=== PATIENT | male | born 1955 | race Caucasian/White ===

== ENCOUNTER 2021-04-25 09:40 | Inpatient (IN) | payer OTHER ==
[~2021-04-25] VITALS: Ht 180.3 cm; Wt 78.1 kg
[2021-04-25 10:59] LABS: COVID AG,FIA SOURCE NASOPHARYNGEAL
[2021-04-25 11:00] LABS: BASOPHILS % (AUTO) 1.4 % (0.0-2.0); EOSINOPHILS % (AUTO) 9.5 % (1.0-6.0); HEMATOCRIT 31.6 % (41-53); HEMOGLOBIN 10.5 g/dL (13.5-17.5); LYMPHOCYTES # (AUTO) 1.1 K/uL (1.0-4.8); LYMPHOCYTES % (AUTO) 14.5 % (22.0-44.0); MEAN CORPUSCULAR HEMOGLOBIN 31.5 pg (26.0-34.0); MEAN CORPUSCULAR HGB CONC 33.1 G/dL (31.0-37.0); MEAN CORPUSCULAR VOLUME 95 fL (80-100); MONOCYTES # (AUTO) 0.8 K/uL (0.1-1.0); MONOCYTES % (AUTO) 10.4 % (2.0-9.0); NEUTROPHILS # (AUTO) 4.8 K/uL (1.8-7.7); NEUTROPHILS % (AUTO) 64.2 % (40.0-70.0); PLATELET COUNT (AUTO) 144 K/uL (150-450); RED BLOOD CELL COUNT(AUTO) 3.32 MIL/uL (4.50-5.90); RED CELL DISTRIBUTION WIDTH 14.5 % (11.5-14.5)
[2021-04-25 11:18] LABS: ALANINE AMINOTRANSFERASE 29 U/L (12-78); ALBUMIN 3.7 g/dL (3.4-5.0); ALKALINE PHOSPHATASE 110 U/L (46-116); ANION GAP 11 mmol/L (8-16); ASPARTATE AMINOTRANSFERASE 20 U/L (15-37); BILIRUBIN,TOTAL 0.4 mg/dL (0.1-1.0); CALCIUM, TOTAL 9.3 mg/dL (8.8-10.5); CARBON DIOXIDE 25 mmol/L (22-29); CHLORIDE 104 mmol/L (98-107); CREATININE 12.39 mg/dL (0.60-1.30); GLOMERULAR FILTR. RATE CALC 4 mL/min (>60); GLUCOSE,RANDOM 96 mg/dL (70-110); SODIUM SERUM 140 mmol/L (136-145); TOTAL PROTEIN, SERUM 6.9 g/dL (6.4-8.2); UREA NITROGEN, BLOOD 90 mg/dL (7-18)
[2021-04-25 11:21] LABS: POTASSIUM 6.1 mmol/L (3.5-5.1)
[2021-04-25 11:28] LABS: B-TYPE NATRIURETIC PEPTIDE > 5000 pg/mL (0-100)
[2021-04-25] MEDS ORDERED: ONDANSETRON HCL 4 MG/2 ML VIAL IVP PRN (11:45)
[2021-04-25] MEDS ORDERED: INSULIN REGULAR, HUMAN 100 UNITS/ML IVP ONE (11:45)
[2021-04-25] MEDS ORDERED: DEXTROSE 50%-WATER 25 GM/50 ML SYRINGE IVP ONE (11:45)
[2021-04-25 11:57] LABS: GLUCOSE,POINT OF CARE 73 MG/DL (70-110)
[2021-04-25] MEDS ORDERED: DEXTROSE 50%-WATER 25 GM/50 ML SYRINGE IVP PRN (12:15)
[2021-04-25 16:17] VITALS: BP 134/72
[2021-04-25 20:08] LABS: GLUCOMETER DEV NAME(LOC) 5S.2B; GLUCOSE,POINT OF CARE 112 MG/DL (70-110)
[2021-04-25] MEDS: HEPARIN SODIUM,PORCINE 5,000 UNITS/ML VIAL SQ SCH (20:39)
[2021-04-25] MEDS: DOCUSATE SODIUM 100 MG CAPSULE PO SCH (20:39)
[2021-04-25] MEDS: INSULIN LISPRO 100 UNITS/ML SQ PRN (20:40)
[2021-04-25] MEDS: ACETAMINOPHEN 325 MG TABLET PO PRN (20:47)
[2021-04-26 00:11] VITALS: BP 96/46
[2021-04-26 05:15] VITALS: BP 124/72
[2021-04-26 08:15] VITALS: BP 115/78
[2021-04-26] MEDS: HEPARIN SODIUM,PORCINE 5,000 UNITS/ML VIAL SQ SCH ×2 (08:57→21:29)
[2021-04-26] MEDS: DOCUSATE SODIUM 100 MG CAPSULE PO SCH ×2 (08:57→21:29)
[2021-04-26] MEDS: VITAMIN B COMP/VIT C/FOLIC ACID CAPSULE PO SCH (08:57)
[2021-04-26] MEDS: FAMOTIDINE 20 MG TABLET PO SCH (08:57)
[2021-04-26 09:10] LABS: CALCIUM, TOTAL 8.8 mg/dL (8.8-10.5); CREATININE 8.14 mg/dL (0.60-1.30); POTASSIUM 5.5 mmol/L (3.5-5.1)
[2021-04-26 11:13] VITALS: BP 102/64
[2021-04-26 16:09] VITALS: BP 99/60
[2021-04-26] MEDS ORDERED: SODIUM CHLORIDE 0.9% 2,000 ML ONE (16:51)
[2021-04-26 17:26] LABS: GLUCOMETER DEV NAME(LOC) 5N.3; GLUCOSE,POINT OF CARE 151 MG/DL (70-110)
[2021-04-26 17:27] LABS: GLUCOMETER DEV NAME(LOC) 5N.3; GLUCOSE,POINT OF CARE 139 MG/DL (70-110)
[2021-04-26 17:27] LABS: GLUCOMETER DEV NAME(LOC) 5N.3; GLUCOSE,POINT OF CARE 78 MG/DL (70-110)
[2021-04-26] MEDS: SEVELAMER CARBONATE 800 MG TABLET PO SCH (18:49)
[2021-04-26 20:21] VITALS: BP 125/75
[2021-04-27 00:32] VITALS: BP 119/69
[2021-04-27 04:28] VITALS: BP 119/71
[2021-04-27 05:10] LABS: GLUCOMETER DEV NAME(LOC) 5N.1C; GLUCOSE,POINT OF CARE 96 MG/DL (70-110)
[2021-04-27 07:30] VITALS: BP 131/86
[2021-04-27] MEDS: FAMOTIDINE 20 MG TABLET PO SCH (08:20)
[2021-04-27] MEDS: VITAMIN B COMP/VIT C/FOLIC ACID CAPSULE PO SCH (08:20)
[2021-04-27] MEDS: DOCUSATE SODIUM 100 MG CAPSULE PO SCH ×2 (08:20→20:17)
[2021-04-27] MEDS: SEVELAMER CARBONATE 800 MG TABLET PO SCH ×3 (08:20→18:07)
[2021-04-27] MEDS: HEPARIN SODIUM,PORCINE 5,000 UNITS/ML VIAL SQ SCH ×2 (08:20→20:19)
[2021-04-27 11:30] VITALS: BP 112/70
[2021-04-27 11:34] LABS: CALCIUM, TOTAL 8.2 mg/dL (8.8-10.5); CREATININE 6.66 mg/dL (0.60-1.30); POTASSIUM 5.2 mmol/L (3.5-5.1)
[2021-04-27 14:42] LABS: GLUCOMETER DEV NAME(LOC) 5N.1C; GLUCOSE,POINT OF CARE 70 MG/DL (70-110)
[2021-04-27 14:42] LABS: GLUCOMETER DEV NAME(LOC) 5N.1C; GLUCOSE,POINT OF CARE 84 MG/DL (70-110)
[2021-04-27 16:00] VITALS: BP 114/75
[2021-04-27 19:35] LABS: GLUCOMETER DEV NAME(LOC) 5S.1; GLUCOSE,POINT OF CARE 108 MG/DL (70-110)
[2021-04-27 20:15] VITALS: BP 121/74
[2021-04-27 22:30] LABS: GLUCOMETER DEV NAME(LOC) 6N.1; GLUCOSE,POINT OF CARE 123 MG/DL (70-110)
[2021-04-28] MEDS: ACETAMINOPHEN 325 MG TABLET PO PRN (01:55)
[2021-04-28 05:00] VITALS: BP 113/82
[2021-04-28 06:26] LABS: GLUCOMETER DEV NAME(LOC) 6N.1; GLUCOSE,POINT OF CARE 86 MG/DL (70-110)
[2021-04-28 07:38] VITALS: BP 110/65
[2021-04-28] MEDS: DOCUSATE SODIUM 100 MG CAPSULE PO SCH ×2 (08:02→20:29)
[2021-04-28] MEDS: SEVELAMER CARBONATE 800 MG TABLET PO SCH ×3 (08:02→17:22)
[2021-04-28] MEDS: FAMOTIDINE 20 MG TABLET PO SCH (08:02)
[2021-04-28] MEDS: HEPARIN SODIUM,PORCINE 5,000 UNITS/ML VIAL SQ SCH ×2 (08:02→20:32)
[2021-04-28] MEDS: VITAMIN B COMP/VIT C/FOLIC ACID CAPSULE PO SCH (08:02)
[2021-04-28 12:46] LABS: GLUCOMETER DEV NAME(LOC) 6S.1; GLUCOSE,POINT OF CARE 89 MG/DL (70-110)
[2021-04-28] MEDS ORDERED: SODIUM CHLORIDE 0.9% 1,000 ML ONE ×2 (15:23)
[2021-04-28 18:11] LABS: GLUCOMETER DEV NAME(LOC) 6S.1; GLUCOSE,POINT OF CARE 96 MG/DL (70-110)
[2021-04-28 20:47] VITALS: BP_SYST 117; BP_DIAS 117; BP_DIAS 63
[2021-04-28 23:48] LABS: GLUCOMETER DEV NAME(LOC) 6S.1; GLUCOSE,POINT OF CARE 108 MG/DL (70-110)
[2021-04-29 00:41] VITALS: BP 105/67
[2021-04-29 05:25] LABS: GLUCOMETER DEV NAME(LOC) 6N.1; GLUCOSE,POINT OF CARE 83 MG/DL (70-110)
[2021-04-29 05:33] VITALS: BP 122/71
[2021-04-29 08:02] VITALS: BP 109/58
[2021-04-29] MEDS: DOCUSATE SODIUM 100 MG CAPSULE PO SCH ×2 (08:59→20:29)
[2021-04-29] MEDS: SEVELAMER CARBONATE 800 MG TABLET PO SCH ×3 (08:59→17:53)
[2021-04-29] MEDS: VITAMIN B COMP/VIT C/FOLIC ACID CAPSULE PO SCH (08:59)
[2021-04-29] MEDS: FAMOTIDINE 20 MG TABLET PO SCH (09:00)
[2021-04-29] MEDS: HEPARIN SODIUM,PORCINE 5,000 UNITS/ML VIAL SQ SCH ×2 (09:00→20:29)
[2021-04-29] MEDS ORDERED: EPOETIN ALFA 10,000 UNITS/ML VIAL SQ SCH (09:00)
[2021-04-29] MEDS: INSULIN LISPRO 100 UNITS/ML SQ PRN ×2 (11:59→17:24)
[2021-04-29 13:09] LABS: GLUCOMETER DEV NAME(LOC) 6S.1; GLUCOSE,POINT OF CARE 85 MG/DL (70-110)
[2021-04-29 19:40] VITALS: BP 98/55
[2021-04-29 22:26] LABS: GLUCOMETER DEV NAME(LOC) 6N.1; GLUCOSE,POINT OF CARE 111 MG/DL (70-110)
[2021-04-29 22:26] LABS: GLUCOMETER DEV NAME(LOC) 6N.1; GLUCOSE,POINT OF CARE 96 MG/DL (70-110)
[2021-04-30 04:52] VITALS: BP 125/76
[2021-04-30 05:51] LABS: GLUCOMETER DEV NAME(LOC) 6S.1; GLUCOSE,POINT OF CARE 125 MG/DL (70-110)
[2021-04-30] MEDS ORDERED: SODIUM CHLORIDE 0.9% 2,000 ML ONE (07:38)
[2021-04-30] MEDS: SEVELAMER CARBONATE 800 MG TABLET PO SCH ×3 (07:56→18:55)
[2021-04-30] MEDS: HEPARIN SODIUM,PORCINE 5,000 UNITS/ML VIAL SQ SCH ×2 (07:56→20:14)
[2021-04-30 08:05] VITALS: BP 105/70
[2021-04-30] MEDS ORDERED: SEVE0.8P6 PO (10:48)
[2021-04-30] MEDS ORDERED: DOCU-275 PO (10:48)
[2021-04-30] MEDS ORDERED: FAMO20 PO (10:48)
[2021-04-30] MEDS ORDERED: ACET-2247 PO (10:49)
[2021-04-30] MEDS ORDERED: B CO1CAP6 PO (10:49)
[2021-04-30] MEDS ORDERED: INSU100V SQ (10:50)
[2021-04-30] MEDS: VITAMIN B COMP/VIT C/FOLIC ACID CAPSULE PO SCH (13:09)
[2021-04-30] MEDS: DOCUSATE SODIUM 100 MG CAPSULE PO SCH ×2 (13:09→20:13)
[2021-04-30] MEDS: FAMOTIDINE 20 MG TABLET PO SCH (13:09)
[2021-04-30 13:11] VITALS: BP 133/98
[2021-04-30 19:46] LABS: GLUCOMETER DEV NAME(LOC) 6S.1; GLUCOSE,POINT OF CARE 82 MG/DL (70-110)
[2021-04-30 19:46] LABS: GLUCOMETER DEV NAME(LOC) 6N.1; GLUCOSE,POINT OF CARE 84 MG/DL (70-110)
[2021-04-30 19:58] VITALS: BP 95/56
[2021-05-01 00:52] LABS: GLUCOMETER DEV NAME(LOC) 6S.1; GLUCOSE,POINT OF CARE 147 MG/DL (70-110)
[2021-05-01 03:54] VITALS: BP 114/68
[2021-05-01 07:37] LABS: GLUCOMETER DEV NAME(LOC) 6N.1; GLUCOSE,POINT OF CARE 93 MG/DL (70-110)
[2021-05-02] MEDS ORDERED: SEVE800T17 PO (20:21)
== END 2021-05-01 07:49 | DRG 640 ==
LOC: EMS 09:43 → 5S 11:43 → 6S 04-27 19:05
PROVIDERS: ADMIT Internal Medicine; ATTEND Internal Medicine
PROC: 5A1D70Z Performance of Urinary Filtration, Intermittent, Less than 6 Hours Per Day (ICD-10-PCS; principal; 2021-04-25)
PROC: 5A1D70Z Performance of Urinary Filtration, Intermittent, Less than 6 Hours Per Day (ICD-10-PCS; 2021-04-26)
PROC: 5A1D70Z Performance of Urinary Filtration, Intermittent, Less than 6 Hours Per Day (ICD-10-PCS; 2021-04-28)
PROC: 5A1D70Z Performance of Urinary Filtration, Intermittent, Less than 6 Hours Per Day (ICD-10-PCS; 2021-04-30)
DX: E87.5 Hyperkalemia (principal); N18.6 End stage renal disease; I12.0 Hypertensive chronic kidney disease with stage 5 chronic kidney disease or end stage renal disease; E78.00 Pure hypercholesterolemia, unspecified; E11.51 Type 2 diabetes mellitus with diabetic peripheral angiopathy without gangrene; I25.10 Atherosclerotic heart disease of native coronary artery without angina pectoris; Z20.822 Contact with and (suspected) exposure to COVID-19; E78.5 Hyperlipidemia, unspecified; E11.22 Type 2 diabetes mellitus with diabetic chronic kidney disease; D63.1 Anemia in chronic kidney disease; Z02.89 Encounter for other administrative examinations; Z86.73 Personal history of transient ischemic attack (TIA), and cerebral infarction without residual deficits; Z99.2 Dependence on renal dialysis; Z88.2 Allergy status to sulfonamides
CPT/HCPCS: 71045; 80048; 80053; 82962; 83880; 84484; 85025; 85610; 85730; 87081; 87340; 90935; 93005; 99291; J0885; J1644; J1815; J2405; J7030; 36415-L1; 36415-TC

== ENCOUNTER 2021-05-02 19:43 | Inpatient (IN) | payer OTHER ==
[~2021-05-02] VITALS: Ht 167.6 cm; Wt 73.9 kg
[~2021-05-02 19:43] MED LIST: ACET-2247 PO; B CO1CAP6 PO; DOCU-275 PO; FAMO20 PO; INSU100V SQ; SEVE0.8P6 PO
[2021-05-02] MEDS ORDERED: SEVE800T17 PO (20:21)
[2021-05-02 20:49] LABS: COVID AG,FIA SOURCE NASOPHARYNGEAL
[2021-05-02 20:53] LABS: BASOPHILS % (AUTO) 0.3 % (0.0-2.0); EOSINOPHILS % (AUTO) 7.7 % (1.0-6.0); HEMATOCRIT 29.7 % (41-53); HEMOGLOBIN 9.8 g/dL (13.5-17.5); LYMPHOCYTES % (AUTO) 14.9 % (22.0-44.0); MEAN CORPUSCULAR HEMOGLOBIN 31.4 pg (26.0-34.0); MEAN CORPUSCULAR VOLUME 95 fL (80-100); MONOCYTES # (AUTO) 0.9 K/uL (0.1-1.0); MONOCYTES % (AUTO) 12.6 % (2.0-9.0); NEUTROPHILS # (AUTO) 4.4 K/uL (1.8-7.7); NEUTROPHILS % (AUTO) 64.5 % (40.0-70.0); PLATELET COUNT (AUTO) 168 K/uL (150-450); RED BLOOD CELL COUNT(AUTO) 3.13 MIL/uL (4.50-5.90); RED CELL DISTRIBUTION WIDTH 14.1 % (11.5-14.5)
[2021-05-02 21:04] LABS: CREATININE 9.91 mg/dL (0.60-1.30); POTASSIUM 5.7 mmol/L (3.5-5.1)
[2021-05-02 21:06] LABS: PROTHROMBIN TIME 10.9 SEC (9.4-11.6)
[2021-05-02] MEDS ORDERED: SODIUM POLYSTYRENE SULFONATE 15 GM/60 ML SUSPENSION BOTTLE PO ONE (21:15)
[2021-05-02 21:30] LABS: ALBUMIN 3.8 g/dL (3.4-5.0); BILIRUBIN,TOTAL 0.4 mg/dL (0.1-1.0)
[2021-05-02] MEDS ORDERED: ACETAMINOPHEN 325 MG TABLET PO PRN (22:15)
[2021-05-02] MEDS ORDERED: 0.9% SODIUM CHLORIDE 10 ML SYRINGE IVP PRN (22:15)
[2021-05-02] MEDS ORDERED: ONDANSETRON HCL 4 MG/2 ML VIAL IVP PRN ×2 (22:15→22:30)
[2021-05-02] MEDS ORDERED: MORPHINE SULFATE 2 MG/ML SYRINGE IVP PRN (22:30)
[2021-05-02] MEDS ORDERED: HYDROCODONE/ACETAMINOPHEN 5-325 MG TABLET PO PRN (22:30)
[2021-05-02] MEDS ORDERED: MAGNESIUM HYDROXIDE SUSPENSION 30 ML UDCUP PO PRN (22:30)
[2021-05-02] MEDS ORDERED: BISACODYL 10 MG RECTAL RECTAL SUPPOSITORY PR PRN (22:30)
[2021-05-03 00:32] VITALS: BP 122/50
[2021-05-03] MEDS: HEPARIN SODIUM,PORCINE 5,000 UNITS/ML VIAL SQ SCH ×3 (00:45→15:25)
[2021-05-03 06:07] LABS: BASOPHILS % (AUTO) 1.2 % (0.0-2.0); EOSINOPHILS % (AUTO) 9.9 % (1.0-6.0); LYMPHOCYTES % (AUTO) 17.7 % (22.0-44.0); MEAN CORPUSCULAR HEMOGLOBIN 31.5 pg (26.0-34.0); MEAN CORPUSCULAR HGB CONC 33.2 G/dL (31.0-37.0); MEAN CORPUSCULAR VOLUME 95 fL (80-100); MONOCYTES # (AUTO) 0.9 K/uL (0.1-1.0); MONOCYTES % (AUTO) 15.4 % (2.0-9.0); NEUTROPHILS # (AUTO) 3.3 K/uL (1.8-7.7); NEUTROPHILS % (AUTO) 55.8 % (40.0-70.0); PLATELET COUNT (AUTO) 147 K/uL (150-450); RED BLOOD CELL COUNT(AUTO) 2.85 MIL/uL (4.50-5.90); RED CELL DISTRIBUTION WIDTH 14.3 % (11.5-14.5)
[2021-05-03 07:09] LABS: ALBUMIN 3.3 g/dL (3.4-5.0); BILIRUBIN,TOTAL 0.4 mg/dL (0.1-1.0); CALCIUM, TOTAL 7.6 mg/dL (8.8-10.5); CREATININE 10.57 mg/dL (0.60-1.30); POTASSIUM 4.5 mmol/L (3.5-5.1)
[2021-05-03] MEDS: SEVELAMER CARBONATE 800 MG TABLET PO SCH ×3 (08:20→17:56)
[2021-05-03] MEDS: DOCUSATE SODIUM 100 MG CAPSULE PO SCH ×2 (08:20→21:00)
[2021-05-03] MEDS: PANTOPRAZOLE SODIUM 40 MG DR TABLET PO SCH (08:20)
[2021-05-03 08:31] VITALS: BP 115/68
[2021-05-03 11:29] VITALS: BP 100/59
[2021-05-03 15:40] VITALS: BP 107/71
[2021-05-03] MEDS ORDERED: SODIUM CHLORIDE 0.9% 2,000 ML ONE (18:49)
[2021-05-03 20:21] VITALS: BP 118/81
[2021-05-04] VITALS (7 sets, daily range): BP systolic 111–154; BP diastolic 72–97
[2021-05-04] MEDS: HEPARIN SODIUM,PORCINE 5,000 UNITS/ML VIAL SQ SCH ×3 (00:42→16:01)
[2021-05-04 06:44] LABS: BASOPHILS % (AUTO) 1.2 % (0.0-2.0); EOSINOPHILS % (AUTO) 7.8 % (1.0-6.0); HEMATOCRIT 28.9 % (41-53); HEMOGLOBIN 9.7 g/dL (13.5-17.5); LYMPHOCYTES # (AUTO) 0.9 K/uL (1.0-4.8); LYMPHOCYTES % (AUTO) 14.2 % (22.0-44.0); MEAN CORPUSCULAR HEMOGLOBIN 31.7 pg (26.0-34.0); MEAN CORPUSCULAR HGB CONC 33.4 G/dL (31.0-37.0); MEAN CORPUSCULAR VOLUME 95 fL (80-100); MONOCYTES # (AUTO) 0.7 K/uL (0.1-1.0); MONOCYTES % (AUTO) 11.9 % (2.0-9.0); NEUTROPHILS # (AUTO) 3.9 K/uL (1.8-7.7); NEUTROPHILS % (AUTO) 64.9 % (40.0-70.0); PLATELET COUNT (AUTO) 165 K/uL (150-450); RED BLOOD CELL COUNT(AUTO) 3.05 MIL/uL (4.50-5.90); RED CELL DISTRIBUTION WIDTH 14.4 % (11.5-14.5)
[2021-05-04 06:56] LABS: CALCIUM, TOTAL 8.1 mg/dL (8.8-10.5); CREATININE 8.41 mg/dL (0.60-1.30); POTASSIUM 3.9 mmol/L (3.5-5.1)
[2021-05-04] MEDS: PANTOPRAZOLE SODIUM 40 MG DR TABLET PO SCH (07:58)
[2021-05-04] MEDS: SEVELAMER CARBONATE 800 MG TABLET PO SCH ×3 (07:58→17:46)
[2021-05-04] MEDS: DOCUSATE SODIUM 100 MG CAPSULE PO SCH ×2 (07:58→22:27)
[2021-05-04] MEDS ORDERED: SODIUM CHLORIDE 0.9% 1,000 ML ONE (16:56)
[2021-05-05] MEDS: HEPARIN SODIUM,PORCINE 5,000 UNITS/ML VIAL SQ SCH ×3 (01:01→17:25)
[2021-05-05 05:18] VITALS: BP 118/72
[2021-05-05 05:55] LABS: BASOPHILS % (AUTO) 1.1 % (0.0-2.0); EOSINOPHILS % (AUTO) 8.3 % (1.0-6.0); HEMATOCRIT 28.9 % (41-53); HEMOGLOBIN 9.5 g/dL (13.5-17.5); LYMPHOCYTES % (AUTO) 16.2 % (22.0-44.0); MEAN CORPUSCULAR HEMOGLOBIN 31.4 pg (26.0-34.0); MEAN CORPUSCULAR HGB CONC 32.9 G/dL (31.0-37.0); MEAN CORPUSCULAR VOLUME 96 fL (80-100); MONOCYTES # (AUTO) 0.7 K/uL (0.1-1.0); MONOCYTES % (AUTO) 12.1 % (2.0-9.0); NEUTROPHILS # (AUTO) 3.8 K/uL (1.8-7.7); NEUTROPHILS % (AUTO) 62.3 % (40.0-70.0); PLATELET COUNT (AUTO) 173 K/uL (150-450); RED BLOOD CELL COUNT(AUTO) 3.03 MIL/uL (4.50-5.90); RED CELL DISTRIBUTION WIDTH 14.6 % (11.5-14.5)
[2021-05-05 06:56] LABS: CALCIUM, TOTAL 8.1 mg/dL (8.8-10.5); CREATININE 6.06 mg/dL (0.60-1.30); POTASSIUM 3.6 mmol/L (3.5-5.1)
[2021-05-05 07:34] VITALS: BP 132/90
[2021-05-05] MEDS: SEVELAMER CARBONATE 800 MG TABLET PO SCH ×3 (08:28→17:25)
[2021-05-05] MEDS: PANTOPRAZOLE SODIUM 40 MG DR TABLET PO SCH (08:29)
[2021-05-05] MEDS: DOCUSATE SODIUM 100 MG CAPSULE PO SCH ×2 (08:29→19:58)
[2021-05-05 11:34] VITALS: BP 130/84
[2021-05-05 15:35] VITALS: BP 117/74
[2021-05-05 19:10] VITALS: BP 124/63
[2021-05-05 23:30] VITALS: BP 116/89
[2021-05-06] MEDS: HEPARIN SODIUM,PORCINE 5,000 UNITS/ML VIAL SQ SCH ×4 (00:28→23:32)
[2021-05-06 04:00] VITALS: BP 121/74
[2021-05-06 06:10] LABS: BASOPHILS % (AUTO) 0.9 % (0.0-2.0); EOSINOPHILS % (AUTO) 7.8 % (1.0-6.0); HEMATOCRIT 29.1 % (41-53); HEMOGLOBIN 9.4 g/dL (13.5-17.5); LYMPHOCYTES # (AUTO) 0.9 K/uL (1.0-4.8); LYMPHOCYTES % (AUTO) 15.6 % (22.0-44.0); MEAN CORPUSCULAR HEMOGLOBIN 31.1 pg (26.0-34.0); MEAN CORPUSCULAR HGB CONC 32.4 G/dL (31.0-37.0); MEAN CORPUSCULAR VOLUME 96 fL (80-100); MONOCYTES # (AUTO) 0.7 K/uL (0.1-1.0); MONOCYTES % (AUTO) 12.2 % (2.0-9.0); NEUTROPHILS # (AUTO) 3.7 K/uL (1.8-7.7); NEUTROPHILS % (AUTO) 63.5 % (40.0-70.0); PLATELET COUNT (AUTO) 178 K/uL (150-450); RED BLOOD CELL COUNT(AUTO) 3.03 MIL/uL (4.50-5.90); RED CELL DISTRIBUTION WIDTH 14.7 % (11.5-14.5)
[2021-05-06 06:37] LABS: ALBUMIN 3.4 g/dL (3.4-5.0); BILIRUBIN,TOTAL 0.5 mg/dL (0.1-1.0); CALCIUM, TOTAL 8.1 mg/dL (8.8-10.5); CREATININE 8.49 mg/dL (0.60-1.30); POTASSIUM 4.3 mmol/L (3.5-5.1); TOTAL PROTEIN, SERUM 6.3 g/dL (6.4-8.2)
[2021-05-06] MEDS: SEVELAMER CARBONATE 800 MG TABLET PO SCH ×3 (08:04→17:43)
[2021-05-06] MEDS: PANTOPRAZOLE SODIUM 40 MG DR TABLET PO SCH (08:04)
[2021-05-06] MEDS: DOCUSATE SODIUM 100 MG CAPSULE PO SCH ×2 (08:04→20:45)
[2021-05-06 08:06] VITALS: BP 126/80
[2021-05-06 11:39] VITALS: BP 123/76
[2021-05-06 15:45] VITALS: BP 107/63
[2021-05-06] MEDS ORDERED: SODIUM CHLORIDE 0.9% 2,000 ML ONE (15:52)
[2021-05-07] VITALS (8 sets, daily range): BP systolic 101–139; BP diastolic 54–91
[2021-05-07 06:13] LABS: BASOPHILS % (AUTO) 1.3 % (0.0-2.0); EOSINOPHILS % (AUTO) 7.9 % (1.0-6.0); HEMATOCRIT 30.2 % (41-53); HEMOGLOBIN 9.8 g/dL (13.5-17.5); LYMPHOCYTES % (AUTO) 16.9 % (22.0-44.0); MEAN CORPUSCULAR HEMOGLOBIN 31.2 pg (26.0-34.0); MEAN CORPUSCULAR HGB CONC 32.4 G/dL (31.0-37.0); MEAN CORPUSCULAR VOLUME 96 fL (80-100); MONOCYTES # (AUTO) 0.7 K/uL (0.1-1.0); MONOCYTES % (AUTO) 11.7 % (2.0-9.0); NEUTROPHILS # (AUTO) 3.8 K/uL (1.8-7.7); NEUTROPHILS % (AUTO) 62.2 % (40.0-70.0); PLATELET COUNT (AUTO) 181 K/uL (150-450); RED BLOOD CELL COUNT(AUTO) 3.13 MIL/uL (4.50-5.90); RED CELL DISTRIBUTION WIDTH 14.8 % (11.5-14.5)
[2021-05-07 06:30] LABS: ALBUMIN 3.2 g/dL (3.4-5.0); BILIRUBIN,TOTAL 0.5 mg/dL (0.1-1.0); CALCIUM, TOTAL 8.4 mg/dL (8.8-10.5); CREATININE 5.18 mg/dL (0.60-1.30); PHOSPHORUS 3.6 mg/dL (2.5-4.9); POTASSIUM 4.8 mmol/L (3.5-5.1); TOTAL PROTEIN, SERUM 6.7 g/dL (6.4-8.2)
[2021-05-07] MEDS: HEPARIN SODIUM,PORCINE 5,000 UNITS/ML VIAL SQ SCH ×2 (07:54→16:06)
[2021-05-07] MEDS: DOCUSATE SODIUM 100 MG CAPSULE PO SCH ×2 (07:54→19:38)
[2021-05-07] MEDS: PANTOPRAZOLE SODIUM 40 MG DR TABLET PO SCH (07:54)
[2021-05-07] MEDS: SEVELAMER CARBONATE 800 MG TABLET PO SCH ×3 (07:54→17:55)
[2021-05-07] MEDS: VITAMIN B COMP/VIT C/FOLIC ACID CAPSULE PO SCH (16:06)
[2021-05-07] MEDS: ZOLPIDEM TARTRATE 5 MG TABLET PO PRN (19:38)
[2021-05-07 23:14] LABS: GLUCOMETER DEV NAME(LOC) 6S.1; GLUCOSE,POINT OF CARE 151 MG/DL (70-110)
[2021-05-08 04:37] VITALS: BP 123/87
[2021-05-08 06:30] LABS: GLUCOMETER DEV NAME(LOC) 6N.1; GLUCOSE,POINT OF CARE 91 MG/DL (70-110)
[2021-05-08 06:49] LABS: CALCIUM, TOTAL 8.2 mg/dL (8.8-10.5); CREATININE 7.33 mg/dL (0.60-1.30); POTASSIUM 4.7 mmol/L (3.5-5.1)
[2021-05-08 07:19] LABS: BASOPHILS % (AUTO) 1.5 % (0.0-2.0); EOSINOPHILS % (AUTO) 10.3 % (1.0-6.0); HEMATOCRIT 31.5 % (41-53); HEMOGLOBIN 10.1 g/dL (13.5-17.5); LYMPHOCYTES # (AUTO) 1.2 K/uL (1.0-4.8); LYMPHOCYTES % (AUTO) 18.9 % (22.0-44.0); MEAN CORPUSCULAR HEMOGLOBIN 31.5 pg (26.0-34.0); MEAN CORPUSCULAR HGB CONC 32.2 G/dL (31.0-37.0); MEAN CORPUSCULAR VOLUME 98 fL (80-100); MONOCYTES # (AUTO) 0.8 K/uL (0.1-1.0); MONOCYTES % (AUTO) 12.4 % (2.0-9.0); NEUTROPHILS # (AUTO) 3.5 K/uL (1.8-7.7); NEUTROPHILS % (AUTO) 56.9 % (40.0-70.0); PLATELET COUNT (AUTO) 190 K/uL (150-450); RED BLOOD CELL COUNT(AUTO) 3.22 MIL/uL (4.50-5.90); RED CELL DISTRIBUTION WIDTH 14.9 % (11.5-14.5)
[2021-05-08 07:39] VITALS: BP 118/76
[2021-05-08] MEDS: VITAMIN B COMP/VIT C/FOLIC ACID CAPSULE PO SCH (08:47)
[2021-05-08] MEDS: HEPARIN SODIUM,PORCINE 5,000 UNITS/ML VIAL SQ SCH ×3 (08:47→15:13)
[2021-05-08] MEDS: SEVELAMER CARBONATE 800 MG TABLET PO SCH ×3 (08:47→17:37)
[2021-05-08] MEDS: PANTOPRAZOLE SODIUM 40 MG DR TABLET PO SCH (08:47)
[2021-05-08] MEDS: DOCUSATE SODIUM 100 MG CAPSULE PO SCH ×2 (08:47→20:24)
[2021-05-08 18:35] LABS: GLUCOMETER DEV NAME(LOC) 6S.1; GLUCOSE,POINT OF CARE 102 MG/DL (70-110)
[2021-05-08 20:09] VITALS: BP 130/92
[2021-05-08] MEDS: ACETAMINOPHEN 325 MG TABLET PO PRN (20:24)
[2021-05-08 22:21] LABS: GLUCOMETER DEV NAME(LOC) 6S.1; GLUCOSE,POINT OF CARE 168 MG/DL (70-110)
[2021-05-09 04:42] VITALS: BP 122/80
[2021-05-09 05:47] LABS: BASOPHILS % (AUTO) 1.2 % (0.0-2.0); EOSINOPHILS % (AUTO) 9.5 % (1.0-6.0); HEMOGLOBIN 9.5 g/dL (13.5-17.5); LYMPHOCYTES # (AUTO) 0.9 K/uL (1.0-4.8); MEAN CORPUSCULAR HEMOGLOBIN 31.4 pg (26.0-34.0); MEAN CORPUSCULAR HGB CONC 32.8 G/dL (31.0-37.0); MEAN CORPUSCULAR VOLUME 96 fL (80-100); MONOCYTES # (AUTO) 0.7 K/uL (0.1-1.0); MONOCYTES % (AUTO) 11.4 % (2.0-9.0); NEUTROPHILS % (AUTO) 62.9 % (40.0-70.0); PLATELET COUNT (AUTO) 179 K/uL (150-450); RED BLOOD CELL COUNT(AUTO) 3.03 MIL/uL (4.50-5.90); RED CELL DISTRIBUTION WIDTH 14.9 % (11.5-14.5)
[2021-05-09 07:13] LABS: ALBUMIN 3.2 g/dL (3.4-5.0); BILIRUBIN,TOTAL 0.5 mg/dL (0.1-1.0); CALCIUM, TOTAL 8.4 mg/dL (8.8-10.5); CREATININE 9.34 mg/dL (0.60-1.30); POTASSIUM 4.8 mmol/L (3.5-5.1); TOTAL PROTEIN, SERUM 6.4 g/dL (6.4-8.2)
[2021-05-09 07:54] VITALS: BP 113/65
[2021-05-09 08:04] LABS: GLUCOMETER DEV NAME(LOC) 6N.1; GLUCOSE,POINT OF CARE 76 MG/DL (70-110)
[2021-05-09] MEDS: HEPARIN SODIUM,PORCINE 5,000 UNITS/ML VIAL SQ SCH ×3 (08:54→16:04)
[2021-05-09] MEDS: VITAMIN B COMP/VIT C/FOLIC ACID CAPSULE PO SCH (08:54)
[2021-05-09] MEDS: PANTOPRAZOLE SODIUM 40 MG DR TABLET PO SCH (08:54)
[2021-05-09] MEDS: SEVELAMER CARBONATE 800 MG TABLET PO SCH ×3 (08:54→17:43)
[2021-05-09] MEDS: DOCUSATE SODIUM 100 MG CAPSULE PO SCH ×2 (08:54→20:08)
[2021-05-09] MEDS: EPOETIN ALFA 10,000 UNITS/ML VIAL SQ SCH (08:55)
[2021-05-09 13:17] LABS: GLUCOMETER DEV NAME(LOC) 6N.1; GLUCOSE,POINT OF CARE 109 MG/DL (70-110)
[2021-05-09 18:26] LABS: GLUCOMETER DEV NAME(LOC) 6S.1; GLUCOSE,POINT OF CARE 110 MG/DL (70-110)
[2021-05-09 20:00] VITALS: BP 139/83
[2021-05-09 23:48] LABS: GLUCOMETER DEV NAME(LOC) 6S.1; GLUCOSE,POINT OF CARE 113 MG/DL (70-110)
[2021-05-10 05:07] LABS: HIV 1-2 SCREEN 4TH GEN W/RFLX Non Reactive (Non Reactive)
[2021-05-10 06:53] LABS: GLUCOMETER DEV NAME(LOC) 6N.1; GLUCOSE,POINT OF CARE 86 MG/DL (70-110)
[2021-05-10 07:21] VITALS: BP 126/51
[2021-05-10] MEDS: DOCUSATE SODIUM 100 MG CAPSULE PO SCH ×2 (08:45→20:29)
[2021-05-10] MEDS: HEPARIN SODIUM,PORCINE 5,000 UNITS/ML VIAL SQ SCH ×4 (08:45→23:27)
[2021-05-10] MEDS: SEVELAMER CARBONATE 800 MG TABLET PO SCH ×3 (08:45→17:21)
[2021-05-10] MEDS: VITAMIN B COMP/VIT C/FOLIC ACID CAPSULE PO SCH (08:45)
[2021-05-10] MEDS: PANTOPRAZOLE SODIUM 40 MG DR TABLET PO SCH (08:45)
[2021-05-10 12:49] LABS: GLUCOMETER DEV NAME(LOC) 6N.1; GLUCOSE,POINT OF CARE 72 MG/DL (70-110)
[2021-05-10 18:18] LABS: GLUCOMETER DEV NAME(LOC) 6S.1; GLUCOSE,POINT OF CARE 126 MG/DL (70-110)
[2021-05-10 20:00] VITALS: BP 122/80
[2021-05-11 04:34] LABS: GLUCOMETER DEV NAME(LOC) 6S.1; GLUCOSE,POINT OF CARE 171 MG/DL (70-110)
[2021-05-11 05:03] VITALS: BP 129/88
[2021-05-11 07:41] LABS: GLUCOMETER DEV NAME(LOC) 6S.1; GLUCOSE,POINT OF CARE 76 MG/DL (70-110)
[2021-05-11 07:53] VITALS: BP 99/62
[2021-05-11] MEDS: PANTOPRAZOLE SODIUM 40 MG DR TABLET PO SCH (08:04)
[2021-05-11] MEDS: HEPARIN SODIUM,PORCINE 5,000 UNITS/ML VIAL SQ SCH ×3 (08:04→23:46)
[2021-05-11] MEDS: SEVELAMER CARBONATE 800 MG TABLET PO SCH ×3 (08:04→20:38)
[2021-05-11] MEDS: VITAMIN B COMP/VIT C/FOLIC ACID CAPSULE PO SCH (08:04)
[2021-05-11] MEDS: EPOETIN ALFA 10,000 UNITS/ML VIAL SQ SCH (08:04)
[2021-05-11] MEDS: DOCUSATE SODIUM 100 MG CAPSULE PO SCH ×2 (08:04→20:38)
[2021-05-11 12:15] LABS: GLUCOMETER DEV NAME(LOC) 6S.1; GLUCOSE,POINT OF CARE 135 MG/DL (70-110)
[2021-05-11 17:53] LABS: GLUCOMETER DEV NAME(LOC) 6N.1; GLUCOSE,POINT OF CARE 93 MG/DL (70-110)
[2021-05-11 19:56] VITALS: BP 125/79
[2021-05-12 06:02] VITALS: BP 120/74
[2021-05-12 08:11] LABS: GLUCOMETER DEV NAME(LOC) 6N.1; GLUCOSE,POINT OF CARE 88 MG/DL (70-110)
[2021-05-12 08:13] VITALS: BP 134/82
[2021-05-12] MEDS: VITAMIN B COMP/VIT C/FOLIC ACID CAPSULE PO SCH (08:18)
[2021-05-12] MEDS: SEVELAMER CARBONATE 800 MG TABLET PO SCH ×3 (08:18→17:31)
[2021-05-12] MEDS: DOCUSATE SODIUM 100 MG CAPSULE PO SCH ×2 (08:18→21:07)
[2021-05-12] MEDS: PANTOPRAZOLE SODIUM 40 MG DR TABLET PO SCH (08:18)
[2021-05-12] MEDS: HEPARIN SODIUM,PORCINE 5,000 UNITS/ML VIAL SQ SCH ×2 (08:18→16:06)
[2021-05-12 10:07] LABS: QUANTIFERON, TB GOLD PLUS Positive (Negative)
[2021-05-12] MEDS: PYRAZINAMIDE 500 MG TABLET PO SCH (14:39)
[2021-05-12] MEDS: PYRIDOXINE HCL 50 MG TABLET PO SCH (14:39)
[2021-05-12] MEDS: RIFAMPIN 300 MG CAPSULE PO SCH (14:39)
[2021-05-12] MEDS: ISONIAZID 300 MG TABLET PO SCH (14:39)
[2021-05-12] MEDS: ETHAMBUTOL HCL 400 MG TABLET PO SCH (14:39)
[2021-05-12 19:15] LABS: GLUCOMETER DEV NAME(LOC) 6S.1; GLUCOSE,POINT OF CARE 148 MG/DL (70-110)
[2021-05-12 20:19] VITALS: BP 123/63
[2021-05-13] MEDS: HEPARIN SODIUM,PORCINE 5,000 UNITS/ML VIAL SQ SCH ×4 (00:02→23:36)
[2021-05-13 05:20] VITALS: BP 115/73
[2021-05-13 07:49] VITALS: BP 128/78
[2021-05-13] MEDS: SEVELAMER CARBONATE 800 MG TABLET PO SCH ×3 (08:43→17:53)
[2021-05-13] MEDS: VITAMIN B COMP/VIT C/FOLIC ACID CAPSULE PO SCH (08:43)
[2021-05-13] MEDS: RIFAMPIN 300 MG CAPSULE PO SCH (08:43)
[2021-05-13] MEDS: DOCUSATE SODIUM 100 MG CAPSULE PO SCH ×2 (08:43→23:36)
[2021-05-13] MEDS: PYRIDOXINE HCL 50 MG TABLET PO SCH (08:43)
[2021-05-13] MEDS: PANTOPRAZOLE SODIUM 40 MG DR TABLET PO SCH (08:43)
[2021-05-13] MEDS: ISONIAZID 300 MG TABLET PO SCH (08:43)
[2021-05-13] MEDS: EPOETIN ALFA 10,000 UNITS/ML VIAL SQ SCH (08:43)
[2021-05-13] MEDS ORDERED: SODIUM CHLORIDE 0.9% 2,000 ML ONE (09:38)
[2021-05-13 19:35] VITALS: BP 117/76
[2021-05-14 03:58] VITALS: BP 109/59
[2021-05-14] MEDS: HEPARIN SODIUM,PORCINE 5,000 UNITS/ML VIAL SQ SCH ×3 (08:22→23:09)
[2021-05-14] MEDS: PYRAZINAMIDE 500 MG TABLET PO SCH (08:23)
[2021-05-14] MEDS: SEVELAMER CARBONATE 800 MG TABLET PO SCH ×3 (08:23→17:17)
[2021-05-14] MEDS: ISONIAZID 300 MG TABLET PO SCH (08:23)
[2021-05-14] MEDS: ETHAMBUTOL HCL 400 MG TABLET PO SCH (08:23)
[2021-05-14] MEDS: PANTOPRAZOLE SODIUM 40 MG DR TABLET PO SCH (08:23)
[2021-05-14] MEDS: DOCUSATE SODIUM 100 MG CAPSULE PO SCH ×2 (08:23→23:09)
[2021-05-14] MEDS: PYRIDOXINE HCL 50 MG TABLET PO SCH (08:23)
[2021-05-14] MEDS: VITAMIN B COMP/VIT C/FOLIC ACID CAPSULE PO SCH (08:23)
[2021-05-14] MEDS: RIFAMPIN 300 MG CAPSULE PO SCH (08:23)
[2021-05-14 08:29] VITALS: BP 136/77
[2021-05-14 10:26] LABS: GLUCOMETER DEV NAME(LOC) 6S.1; GLUCOSE,POINT OF CARE 129 MG/DL (70-110)
[2021-05-14 10:26] LABS: GLUCOMETER DEV NAME(LOC) 6S.1; GLUCOSE,POINT OF CARE 68 MG/DL (70-110)
[2021-05-14 10:27] LABS: GLUCOMETER DEV NAME(LOC) 6S.1; GLUCOSE,POINT OF CARE 88 MG/DL (70-110)
[2021-05-14] MEDS: ACETAMINOPHEN 325 MG TABLET PO PRN (15:41)
[2021-05-14 16:02] LABS: GLUCOMETER DEV NAME(LOC) 6S.1; GLUCOSE,POINT OF CARE 158 MG/DL (70-110)
[2021-05-14 19:57] VITALS: BP 123/72
[2021-05-15 04:05] VITALS: BP 127/82
[2021-05-15 07:34] LABS: GLUCOMETER DEV NAME(LOC) 6S.1; GLUCOSE,POINT OF CARE 109 MG/DL (70-110)
[2021-05-15 07:34] LABS: GLUCOMETER DEV NAME(LOC) 6S.1; GLUCOSE,POINT OF CARE 83 MG/DL (70-110)
[2021-05-15 08:09] VITALS: BP 146/74
[2021-05-15] MEDS: ISONIAZID 300 MG TABLET PO SCH (08:36)
[2021-05-15] MEDS: PYRIDOXINE HCL 50 MG TABLET PO SCH (08:36)
[2021-05-15] MEDS: PANTOPRAZOLE SODIUM 40 MG DR TABLET PO SCH (08:36)
[2021-05-15] MEDS: RIFAMPIN 300 MG CAPSULE PO SCH (08:36)
[2021-05-15] MEDS: VITAMIN B COMP/VIT C/FOLIC ACID CAPSULE PO SCH (08:36)
[2021-05-15] MEDS: DOCUSATE SODIUM 100 MG CAPSULE PO SCH ×2 (08:36→20:50)
[2021-05-15] MEDS: SEVELAMER CARBONATE 800 MG TABLET PO SCH ×3 (08:36→17:37)
[2021-05-15] MEDS: HEPARIN SODIUM,PORCINE 5,000 UNITS/ML VIAL SQ SCH ×3 (08:37→23:22)
[2021-05-15 20:30] VITALS: BP 151/98
[2021-05-16 04:25] VITALS: BP 133/80
[2021-05-16 07:20] LABS: BASOPHILS % (AUTO) 1.4 % (0.0-2.0); EOSINOPHILS % (AUTO) 10.5 % (1.0-6.0); HEMATOCRIT 33.6 % (41-53); HEMOGLOBIN 10.8 g/dL (13.5-17.5); LYMPHOCYTES # (AUTO) 1.1 K/uL (1.0-4.8); LYMPHOCYTES % (AUTO) 19.6 % (22.0-44.0); MEAN CORPUSCULAR HEMOGLOBIN 31.4 pg (26.0-34.0); MEAN CORPUSCULAR HGB CONC 32.1 G/dL (31.0-37.0); MEAN CORPUSCULAR VOLUME 98 fL (80-100); MONOCYTES # (AUTO) 0.6 K/uL (0.1-1.0); MONOCYTES % (AUTO) 10.7 % (2.0-9.0); NEUTROPHILS # (AUTO) 3.3 K/uL (1.8-7.7); NEUTROPHILS % (AUTO) 57.8 % (40.0-70.0); PLATELET COUNT (AUTO) 254 K/uL (150-450); RED BLOOD CELL COUNT(AUTO) 3.44 MIL/uL (4.50-5.90); RED CELL DISTRIBUTION WIDTH 15.1 % (11.5-14.5)
[2021-05-16 07:37] LABS: ALBUMIN 3.7 g/dL (3.4-5.0); BILIRUBIN,TOTAL 0.4 mg/dL (0.1-1.0); CREATININE 12.29 mg/dL (0.60-1.30); POTASSIUM 5.5 mmol/L (3.5-5.1); TOTAL PROTEIN, SERUM 6.9 g/dL (6.4-8.2)
[2021-05-16 07:44] VITALS: BP 118/62
[2021-05-16] MEDS: SEVELAMER CARBONATE 800 MG TABLET PO SCH ×3 (08:00→17:32)
[2021-05-16] MEDS: VITAMIN B COMP/VIT C/FOLIC ACID CAPSULE PO SCH (14:22)
[2021-05-16] MEDS: PYRIDOXINE HCL 50 MG TABLET PO SCH (14:22)
[2021-05-16] MEDS: DOCUSATE SODIUM 100 MG CAPSULE PO SCH ×2 (14:22→20:33)
[2021-05-16] MEDS: HEPARIN SODIUM,PORCINE 5,000 UNITS/ML VIAL SQ SCH ×3 (14:23→23:38)
[2021-05-16] MEDS: EPOETIN ALFA 10,000 UNITS/ML VIAL SQ SCH (14:23)
[2021-05-16] MEDS: RIFAMPIN 300 MG CAPSULE PO SCH (14:23)
[2021-05-16] MEDS: ISONIAZID 300 MG TABLET PO SCH (14:23)
[2021-05-16] MEDS: PANTOPRAZOLE SODIUM 40 MG DR TABLET PO SCH (14:23)
[2021-05-16 20:20] VITALS: BP 131/66
[2021-05-16] MEDS: ZOLPIDEM TARTRATE 5 MG TABLET PO PRN (20:33)
[2021-05-17 04:20] VITALS: BP 138/74
[2021-05-17 08:03] VITALS: BP 110/74
[2021-05-17] MEDS: SEVELAMER CARBONATE 800 MG TABLET PO SCH ×3 (08:57→18:54)
[2021-05-17] MEDS: PYRAZINAMIDE 500 MG TABLET PO SCH (08:57)
[2021-05-17] MEDS: VITAMIN B COMP/VIT C/FOLIC ACID CAPSULE PO SCH (08:57)
[2021-05-17] MEDS: DOCUSATE SODIUM 100 MG CAPSULE PO SCH ×2 (08:57→20:59)
[2021-05-17] MEDS: ETHAMBUTOL HCL 400 MG TABLET PO SCH (08:57)
[2021-05-17] MEDS: PANTOPRAZOLE SODIUM 40 MG DR TABLET PO SCH (08:58)
[2021-05-17] MEDS: HEPARIN SODIUM,PORCINE 5,000 UNITS/ML VIAL SQ SCH ×3 (08:58→23:37)
[2021-05-17] MEDS: ISONIAZID 300 MG TABLET PO SCH (08:58)
[2021-05-17] MEDS: PYRIDOXINE HCL 50 MG TABLET PO SCH (08:58)
[2021-05-17] MEDS: RIFAMPIN 300 MG CAPSULE PO SCH (08:58)
[2021-05-17 20:41] VITALS: BP 99/61
[2021-05-18 03:17] LABS: GLUCOMETER DEV NAME(LOC) 6S.1; GLUCOSE,POINT OF CARE 100 MG/DL (70-110)
[2021-05-18 05:10] VITALS: BP 121/69
[2021-05-18] MEDS ORDERED: SODIUM CHLORIDE 0.9% 1,000 ML ONE (06:37)
[2021-05-18] MEDS: SEVELAMER CARBONATE 800 MG TABLET PO SCH ×3 (08:00→18:35)
[2021-05-18] MEDS: HEPARIN SODIUM,PORCINE 5,000 UNITS/ML VIAL SQ SCH ×2 (08:00→16:07)
[2021-05-18 08:24] VITALS: BP 126/77
[2021-05-18] MEDS: VITAMIN B COMP/VIT C/FOLIC ACID CAPSULE PO SCH (10:57)
[2021-05-18] MEDS: ISONIAZID 300 MG TABLET PO SCH (10:57)
[2021-05-18] MEDS: RIFAMPIN 300 MG CAPSULE PO SCH (10:57)
[2021-05-18] MEDS: PANTOPRAZOLE SODIUM 40 MG DR TABLET PO SCH (10:57)
[2021-05-18] MEDS: DOCUSATE SODIUM 100 MG CAPSULE PO SCH ×2 (10:57→20:17)
[2021-05-18] MEDS: EPOETIN ALFA 10,000 UNITS/ML VIAL SQ SCH (10:57)
[2021-05-18] MEDS: PYRIDOXINE HCL 50 MG TABLET PO SCH (10:57)
[2021-05-18] MEDS ORDERED: PYRI25TA4 PO (17:58)
[2021-05-18] MEDS ORDERED: RIFA300 PO (17:59)
[2021-05-18] MEDS ORDERED: B CO1CAP6 PO (18:00)
[2021-05-18] MEDS ORDERED: ISON100L PO (18:05)
[2021-05-18] MEDS ORDERED: PYRA500T15 PO (18:06)
[2021-05-18] MEDS ORDERED: ETHA100T14 PO (18:09)
[2021-05-18] MEDS ORDERED: EPOE10003 SQ (18:13)
[2021-05-18 19:00] LABS: COVID AG,FIA SOURCE NASOPHARYNGEAL
[2021-05-18 19:54] VITALS: BP 132/73
== END 2021-05-18 20:30 | DRG 291 ==
LOC: EMS 19:43 → 5N 21:00 → 6S 05-07 18:17
PROVIDERS: ADMIT Internal Medicine; ATTEND Internal Medicine
PROC: 5A1D70Z Performance of Urinary Filtration, Intermittent, Less than 6 Hours Per Day (ICD-10-PCS; principal; 2021-05-03)
PROC: 5A1D70Z Performance of Urinary Filtration, Intermittent, Less than 6 Hours Per Day (ICD-10-PCS; 2021-05-04)
PROC: 5A1D70Z Performance of Urinary Filtration, Intermittent, Less than 6 Hours Per Day (ICD-10-PCS; 2021-05-06)
PROC: 5A1D70Z Performance of Urinary Filtration, Intermittent, Less than 6 Hours Per Day (ICD-10-PCS; 2021-05-09)
PROC: 5A1D70Z Performance of Urinary Filtration, Intermittent, Less than 6 Hours Per Day (ICD-10-PCS; 2021-05-11)
PROC: 5A1D70Z Performance of Urinary Filtration, Intermittent, Less than 6 Hours Per Day (ICD-10-PCS; 2021-05-13)
PROC: 5A1D70Z Performance of Urinary Filtration, Intermittent, Less than 6 Hours Per Day (ICD-10-PCS; 2021-05-16)
PROC: 5A1D70Z Performance of Urinary Filtration, Intermittent, Less than 6 Hours Per Day (ICD-10-PCS; 2021-05-18)
DX: I13.2 Hypertensive heart and chronic kidney disease with heart failure and with stage 5 chronic kidney disease, or end stage renal disease (principal); I50.31 Acute diastolic (congestive) heart failure; N18.6 End stage renal disease; L97.909 Non-pressure chronic ulcer of unspecified part of unspecified lower leg with unspecified severity; D63.8 Anemia in other chronic diseases classified elsewhere; E11.22 Type 2 diabetes mellitus with diabetic chronic kidney disease; E87.5 Hyperkalemia; Z86.73 Personal history of transient ischemic attack (TIA), and cerebral infarction without residual deficits; Z99.2 Dependence on renal dialysis; D63.1 Anemia in chronic kidney disease; Z20.822 Contact with and (suspected) exposure to COVID-19
CPT/HCPCS: 71046; 71250; 80048; 80053; 82550; 82962; 83880; 84100; 84484; 85025; 85610; 85730; 86480; 87015; 87081; 87206; 87340; 87389; 87556; 87798; 90935; 93005; 99285; J0885; J1644; J7030; 36415-L1; 36415-TC; U0003